=== PATIENT | female | born 1995 | race Caucasian/White ===

== ENCOUNTER 2023-12-26 00:41 | Inpatient (IN) | payer OTHER ==
[2023-12-26] VITALS (86 sets, daily range): BP systolic 84–118; BP diastolic 22–87; PULSE 59–127; TEMP 97.8–98.4
[~2023-12-26] VITALS: Ht 154.9 cm; Wt 83.6 kg
[2023-12-26] MEDS ORDERED: LR 1,000 ML IV SCH (01:30)
--- NOTE | 2023-12-26 01:45 | NUR ---
Pt is a G2 L0, [address] Smith, here for possible SROM that occured at 2300 yesterday evening. Pt reports having a gush of clear fluid, denies any vaginal bleeding and reports good movement. 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 Pt placed on monitors and POC discussed with the pt and spouse. Discussed with the pt the Amniotrace that is used to aid in determining SROM and then obtaining an SVE. Pt agreeable to this plan. Vitals also obtained.
[2023-12-26 03:21] LABS: BASO % 0.3 % (0.0-2.0); EOS # 0.2 K/mm3 (0.0-0.7); EOS % 2.4 % (0.0-4.0); GRAN # 6.4 K/mm3 (1.4-6.5); GRAN % 69.9 % (42.2-75.2); HEMATOCRIT 37.5 % (37.0-47.0); HEMOGLOBIN 12.3 g/dl (12.5-16.0); LYMPH # 1.6 K/mm3 (1.2-3.4); LYMPH % 17.6 % (20.0-51.0); MEAN CELL VOLUME 89 fl (80.0-100.0); MEAN CORPUSCULAR HEMOGLOBIN 29 pg (27-31); MEAN CORPUSCULAR HGB CONC 33 g/dl (33.0-37.0); MONO # 0.9 K/mm3 (0.1-0.6); MONO % 9.3 % (1.7-9.3); PLATELET COUNT 216 K/mm3 (130-400); REDCELL DISTRIBUTION WIDTH-CV 16.4 % (11.5-14.5)
[2023-12-26] MEDS ORDERED: LR & Oxytocin 500 ML IV SCH (04:00)
--- NOTE | 2023-12-26 06:25 | NUR ---
CARE OF PATIENT RECIEVED FROM EMEKA HAMM RN. PATIENT ON BIRTHING BALL. PITOCIN RUNNING AT 4ML/HR. 2ND BAG OF LACTATED RINGER'S RUNNING PER EMEKA HAMM RN.
--- NOTE | 2023-12-26 07:32 | NUR ---
AT [facility]. FHR TRACING REVIEWED. PLAN OF CARE UPDATED.
[2023-12-26] MEDS ORDERED: diphenhydrAMINE 25 MG CAP PO PRN (08:00)
[2023-12-26] MEDS ORDERED: diphenhydrAMINE 50 MG/ML 1 ML VIAL IV PRN (08:00)
[2023-12-26] MEDS ORDERED: Naloxone 0.4 MG/ML VIAL IV PRN ×2 (08:00→18:30)
[2023-12-26] MEDS ORDERED: ePHEDrine 50 MG/10 ML VIAL IV PRN (08:00)
[2023-12-26] MEDS ORDERED: Ondansetron 4 MG/2 ML VIAL IV PRN ×2 (08:00→18:30)
--- NOTE | 2023-12-26 08:05 | NUR ---
0758 TEA SHAW. PROCEDURE EXPLAINED AND CONSENT OBTAINED. PATIENT SETUP FOR EPIDURAL. SP02 MONITOR INITIATED. CONTRACTIONS UNABLE TO BE TRACED DUE TO MATERNAL POSITION. 0805 SINGLE SHOT ADMINSISTERED. 0810 PATIENT ASSISTED TO WEDGE LEFT POSITION.
[2023-12-26] MEDS ORDERED: ROPivacaine PF 0.2% 200 ML IV ONE (08:14)
--- NOTE | 2023-12-26 08:16 | NUR ---
AT [facility]. FHR TRACING REVIEWED. PLAN OF CARE UPDATED. MORIS @ 0817 2. IUPC [address]ACED BY DR. ROSS.
--- NOTE | 2023-12-26 08:53 | NUR ---
MATERNAL BLOOD PRESSURE DECREASE X2. FLUID BOLUS INITIATED. MATERNAL BLOOD PRESSURE IMPROVED. PATIENT DENIES ANY SYMPTOMS.
--- NOTE | 2023-12-26 08:53 | NUR ---
MATERNAL BLOOD PRESSURE DECREASE X2. FLUID BOLUS INITIATED. MATERNAL BLOOD PRESSURE IMPROVED @ 0858. PATIENT IS NONSYMPTOMATIC AT THIS TIME.
--- NOTE | 2023-12-26 09:07 | NUR ---
MATERNAL BLOOD PRESSURE X 2. FLUID BOLUS RUNNING. MATERNAL BLOOD PRESSURE IMPROVED @ 0914. PATIENT NONSYMPTOMATIC
[2023-12-26] MEDS ORDERED: SYNTHROID 0.0.025 MG PO (10:47)
[2023-12-26] MEDS ORDERED: VALTREX 50500 MG/TAB PO (10:47)
[2023-12-26] MEDS ORDERED: FEOSOL45 MG (10:48)
[2023-12-26] MEDS ORDERED: PRENATAL TABLET PO (10:48)
[2023-12-26] MEDS ORDERED: PROBIOTIC-PREB1 EACH PO (10:49)
--- NOTE | 2023-12-26 10:52 | NUR ---
1048 MATERNAL BLOOD PRESSURE DECREASE X2. FLUID BOLUS INITAITED. PATIENT SYMPTOMATIC. 1050 MATERNAL BLOOD PRESSURE STILL NOT IMPROVED.10MG EPHEDRINE GIVEN. MATERNAL POSITION CHANGE ATTEMPTED. 1055 MATERNAL BLOOD PRESSURE IMPROVED TO 100/52. 1058 MATERNAL BLOOD PRESSURE STILL STABLE. 110/56. PATIENT REPORTS SYMPTOMS HAVE IMPROVED. FLUID BOLUS STOPPED
--- NOTE | 2023-12-26 11:43 | NUR ---
AT BEDSIDE. FHR TRACING REVIEWED. PLAN OF CARE UPDATED. MORIS @ 1144 /2. MATERNAL BLOOD PRESSURE DECEASES DICUSSED WITH PROVIDER. PROVIDER FEELS THIS IS LIKELY DUE TO VAGAL RESPONSE.
--- NOTE | 2023-12-26 14:15 | NUR ---
MATERNAL BLOOD PRESSURE DECREASE X3. STARTING AT 1330. PATIENT HAD BEEN HAVING PERIODIC LOW PRESSURES. PATIENT STATES SHE NORMALLY RUNS LOW. BOLUS INITIATED AND POSITION CHANGE ATTEMPTED AT 1358 WITH THIRD DECREASED BLOOD PRESSURE. PATIENT REPORTS BEING SYMPTOMATIC. MATERNAL BLOOD PRESSURE WORSENED AT 1413. 10MG EPHEDRINE GIVEN. MATERNAL BLOOD PRESSURE IMPROVED TO 110/52 @ 1417 AND REMAINED STABLE WITH 115/57 @ 1421.
--- NOTE | 2023-12-26 14:46 | NUR ---
AT BEDSIDE. FHR TRACING REVIEWED. PLAN OF CARE UPDATED. SVE @ 1449 2. BLOODY SHOW PRESENT.
--- NOTE | 2023-12-26 17:44 | NUR ---
AT BEDSIDE. FHR TRACING REVIEWED. PLAN OF CARE UPDATED. SVE @ 174 /2. DECISION FOR SECTION FOR ARREST OF DILATION @ 1745 PITOCIN OFF @ 1748.
[2023-12-26] MEDS ORDERED: Azithromycin 500 MG in NS 250 ML IV ONE (18:15)
[2023-12-26] MEDS ORDERED: Tranexamic Acid 1,000 MG in NS 100 ML IV ONE (18:15)
[2023-12-26] MEDS ORDERED: oxyCODONE 5 MG TAB PO PRN (18:30)
[2023-12-26] MEDS ORDERED: Magnes Hydrox (MOM) 80 MG/ML 30 ML CUP PO PRN (18:30)
[2023-12-26] MEDS ORDERED: Measles/Mumps/Rubella Virus Vaccine Live w Diluent 0.5 ML VIAL SQ SCH (18:30)
[2023-12-26] MEDS ORDERED: LR 1,000 ML IV PRN (18:30)
[2023-12-26] MEDS ORDERED: Loratadine 10 MG TAB PO PRN (18:30)
[2023-12-26] MEDS ORDERED: Acetaminophen 500 MG TAB PO PRN (18:30)
[2023-12-26] MEDS ORDERED: Phenylephrine 10 MG/ML VIAL ONE (18:34)
[2023-12-26] MEDS ORDERED: Oxytocin 10 UNITS/ML VIAL ONE ×2 (18:34→19:35)
[2023-12-26] MEDS ORDERED: NS 20 ML IV ONE (18:34)
[2023-12-26] MEDS ORDERED: Ketorolac 60 MG/2 ML VIAL IM ONE (19:05)
[2023-12-26] MEDS ORDERED: Meperidine 50 MG/ML 1 ML VIAL ONE (19:07)
[2023-12-26] MEDS ORDERED: Midazolam 2 MG/2 ML VIAL ONE (19:12)
[2023-12-26] MEDS ORDERED: LR 1,000 ML IV ONE (19:12)
[2023-12-26] MEDS ORDERED: traZODone 50 MG TAB PO PRN (21:00)
[2023-12-27] MEDS ORDERED: Ibuprofen 800 MG TAB PO SCH (00:30)
[2023-12-27 04:15] VITALS: BP 113/76; PULSE 76; TEMP 97.9
[2023-12-27 07:00] VITALS: BP 122/68; PULSE 69; TEMP 97.9
[2023-12-27] MEDS ORDERED: Sennosides/Docusate 8.6-50 MG TAB PO SCH (08:00)
[2023-12-27] MEDS ORDERED: IBU800 M1 PO (12:19)
[2023-12-27] MEDS ORDERED: ROXICODONE 55 MG/TAB PO (12:19)
[2023-12-27 16:00] VITALS: BP 112/62; PULSE 72; TEMP 98.3
[2023-12-27] MEDS ORDERED: Morphine 4 MG/ML VIAL IV PRN (16:45)
[2023-12-27] MEDS ORDERED: oxyCODONE 5 MG TAB PO PRN (16:45)
[2023-12-27 19:30] VITALS: BP 108/58; PULSE 60; PULSE 84; TEMP 97.7; TEMP 97.9
[2023-12-28 08:03] VITALS: BP 108/61; PULSE 84; TEMP 97.7
== END 2023-12-28 17:00 | disposition home or self-care (01) | DRG 787 ==
LOC: LDRO 00:41 → LDR 01:21 → OB 01:21
PROVIDERS: Obstetrics & Gynecology; ADMIT Obstetrics & Gynecology
PROC: 10D00Z1 Extraction of Products of Conception, Low, Open Approach (ICD-10-PCS; principal; 2023-12-26)
PROC: 3E033VJ Introduction of Other Hormone into Peripheral Vein, Percutaneous Approach (ICD-10-PCS; 2023-12-26)
DX: O99.284 Endocrine, nutritional and metabolic diseases complicating childbirth (principal); O98.32 Other infections with a predominantly sexual mode of transmission complicating childbirth; Z37.0 Single live birth; O62.0 Primary inadequate contractions; E03.9 Hypothyroidism, unspecified; A60.09 Herpesviral infection of other urogenital tract; O99.344 Other mental disorders complicating childbirth; F41.9 Anxiety disorder, unspecified; O99.213 Obesity complicating pregnancy, third trimester; Z3A.38 38 weeks gestation of pregnancy; Z79.890 Hormone replacement therapy; Z23 Encounter for immunization; Z86.14 Personal history of Methicillin resistant Staphylococcus aureus infection
CPT/HCPCS: J0456; J0665; J0690; J1885; J2175; J2250; J2371; J2590; J2795; J7050; J7120

== ENCOUNTER → 2024-01-03 | Outpatient (CLI) | payer OTHER ==
[~2024-01-03] MED LIST: FEOSOL45 MG; IBU800 M1 PO; PRENATAL TABLET PO; PROBIOTIC-PREB1 EACH PO; ROXICODONE 55 MG/TAB PO; SYNTHROID 0.0.025 MG PO; VALTREX 50500 MG/TAB PO
--- NOTE | 2024-01-03 15:33 | NUR ---
Pt, Nhung Oquendo, presents for an outpatient consult with 8 day old baby boy, Reinaldo Oquendo. She is also accompanied by her spouse, Mukund Oquendo. Reinaldo was born by c/section on [birth year] and weighed 6# 12.6oz (3080 gms). Pt reports Reinaldo was seen by Dr. Das on 12/31/23 and weighed 6# 10oz. Today Reinaldo weighs 6# 11.5oz (3048 gms). Pt reports various feeding methods, including earlier on pumping and bottle feeding, using a nipple shield, and trying direct latching. Over the last few days she has focused on and has not provided EBM by bottle, or pump. She has collected milk as it leaks from the opposite breast than what she is feeding on. She collects 1-1.5oz. We start with trying to latch Reinaldo to the left breast, which she has had less success with. After a handful of tries it is apparent Reinaldo cannot get his jaw around the fullness of the breast so a nipple shield is placed. He nurses pretty well with it. After this latch Reinaldo had a gain of 40 gms (1.4oz). encourages more feeding as desired intake is about 2oz per feeding at this age. Also, with some of the milk out of the way latch may be more successful. With a little assist from , Reinaldo latches to the same breast in the cradle hold and nurses pretty well again. Total intake is 2oz (58 gms). Najera is content. Several questions address, including spit up, management of milk supply, and sleep patterns. suggests trying block feeding, keeping Najera on the same breast x2 feedings in a row, then the other x2 feedings in a row. Discussed effect on milk supply with this plan. POC: Continue 8+ breastfeedings per day. Try block feeding for a few days to help with over supply. F/U: This Saturday January 06, 2024. Questions invited and answered.
== END ==
LOC: LAC 12-30 11:11
DX: Z39.1 Encounter for care and examination of lactating mother (principal); Z71.89 Other specified counseling

== ENCOUNTER → 2024-01-06 | Outpatient (CLI) | payer OTHER ==
--- NOTE | 2024-01-06 14:00 | NUR ---
Pt, Nhung Oquendo, presents for an outpatient consult with 11 day old baby boy, Reinaldo Oquendo. She is accompanied by her spouse. Reinaldo was born on [birth year] and weighed 6# 12.6oz (3079 gms). This family was seen 3 days ago for difficult latching and trying to wean from the nipple shield. At that time the milk supply was so abundant, Reinaldo was not able to latch without the sheild initially, but after some softening, he latched. Pt was advised to use block feeding to manage down oversupply of milk. Today [place] weighs 6# 14.3oz (3128 gms). Pt states she was able to manage down the milk supply and now nurses Najera bilaterally each feeding but she generally has to use the nipple shield. We attempt to latch Reinaldo without the nipple shield on the first side, he becomes frustrated and milk is leaking so the shield is placed. LC feels pt's coordination with latching and management of the heavy breast still plays a role in her ablity to latch Najera, however, we were able to get Najera to the second breast without the shield. After Reinaldo had a gain of 4.4oz (124 gms). POC: Continue attempting latch without the shield, but use prior to becoming frustrated. Anticipate the shield will be eliminated at some point, but not imperative it happens today. F/U: As scheduled with physicians, and this LC as desired. Questions invited and answered.
== END ==
LOC: LAC 13:04
DX: Z39.1 Encounter for care and examination of lactating mother (principal); Z71.89 Other specified counseling